=== PATIENT | female | born 1970 | race African-American/Black ===

== ENCOUNTER 2023-08-11 13:12 | Emergency (ER) | payer OTHER, SELFPAY ==
[~2023-08-11] VITALS: Ht 162.6 cm; Wt 67.1 kg
[2023-08-11 13:13] VITALS: BP 151/92; PULSE 88; RESP 16
[2023-08-11] MEDS ORDERED: OFLO35OS OS (15:48)
== END 2023-08-11 16:23 | disposition home or self-care (01) ==
LOC: EDH 13:12
DX: B30.1 Conjunctivitis due to adenovirus (principal); I10 Essential (primary) hypertension